=== PATIENT | male | born 1970 | race Caucasian/White ===

== ENCOUNTER 2016-06-06 04:43 | Emergency (ER) | payer OTHER ==
[~2016-06-06] VITALS: Ht 167.6 cm; Wt 80.7 kg
[2016-06-06 04:57] VITALS: BP 129/86
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
[2016-06-06] MEDS ORDERED: ANUSOL-HC25 M1 RC (06:21)
[2016-06-06] MEDS ORDERED: DICLOFENAC SODI75 M2 PO (06:21)
--- NOTE | 2016-06-06 07:17 | RADIOLOGY REPORT ---
EXAMINATION: XR FEMUR and knee, LEFT CLINICAL INFORMATION: Hardware failure left hip and knee pain COMPARISON: None TECHNIQUE: AP and lateral views of the left femur were obtained. 3 views of the left knee are obtained FINDINGS: There is an intramedullary adolfo transfixing an old healed femoral shaft fracture. The distal end of the adolfo is transfixed by 2 screws. The cephalad and of the adolfo extends above the greater trochanter and is not fully included on the AP projection. There is some heterotopic bone surrounding the cephalad end of the adolfo. There is anatomic position and alignment of fracture fragments with solid bony union at the fracture site. There is no evidence for hardware loosening or failure on the views provided. There is no dislocation at the hip or knee. There is no fracture or dislocation seen in the left knee. 2 pins and a circular wire transfix the patella. There is a break in the circular wire. The pins are intact. There is likely an old healed fracture of the patella. There is anatomic position of the bony structures and a fracture line is not seen at this time. There is a possible very tiny suprapatellar joint effusion. There is some chondrocalcinosis in the medial compartment of the knee joint. IMPRESSION: Old healed fractures of the distal shaft of the left femur and patella with hardware as described. The femoral shaft hardware is intact. The circular wire transfixing the patella is broken. Patellar pins are intact. Anatomic position and alignment of bony structures. No acute fracture or dislocation. Heterotopic bone surrounds the cephalad portion of the intramedullary femoral adolfo not fully included on this study.
== END 2016-06-06 07:38 ==
LOC: ERH 04:43
DX: M25.552 Pain in left hip (principal); K64.9 Unspecified hemorrhoids
CPT/HCPCS: 73552; 73562-LT

== ENCOUNTER 2016-06-08 10:29 | Emergency (ER) | payer OTHER ==
[~2016-06-08] VITALS: Ht 167.6 cm; Wt 80.7 kg
[~2016-06-08 10:29] MED LIST: ANUSOL-HC25 M1 RC; DICLOFENAC SODI75 M2 PO
[2016-06-08 10:43] VITALS: BP 112/74
[2016-06-08] MEDS ORDERED: PERCOCET 5-3251 EACH PO (11:37)
[2016-06-08] MEDS ORDERED: XANAX0.5 M1 PO (11:37)
[2016-06-08] MEDS ORDERED: ASPIRIN81 M4 PO (11:39)
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
== END 2016-06-08 11:51 ==
LOC: ERH 10:29
DX: T84.84XA Pain due to internal orthopedic prosthetic devices, implants and grafts, initial encounter (principal)

== ENCOUNTER 2016-07-30 14:16 | Emergency (ER) | payer OTHER ==
[~2016-07-30] VITALS: Ht 167.6 cm; Wt 81.6 kg
[~2016-07-30 14:16] MED LIST changes: +ASPIRIN81 M4 PO; +PERCOCET 5-3251 EACH PO; +XANAX0.5 M1 PO
[2016-07-30 14:24] VITALS: BP 166/97
--- NOTE | 2016-07-30 15:44 | ED GENERAL ADULT ---
History of Present Illness General Chief Complaint: General Adult Stated Complaint: NEEDS PAIN MEDS Source: patient Exam Limitations: no limitations Vital Signs & Intake/Output Vital Signs & Intake/Output Vital Signs Date Time Temp Pulse Resp B/P B/P Pulse O2 O2 Flow FiO2 Mean Ox Delivery Rate 07/30 1424 97.1 74 18 166/97 99 Room Air Allergies Coded Allergies: paroxetine (From PAXIL) (Severe, HYPERACTIVITY 06/08/16) sertraline (From ZOLOFT) (Severe, HYPERACTIVITY 06/08/16) NSAIDS (Non-Steroidal Anti-Inflamma (UNKNOWN 06/08/16) Uncoded Allergies: HIGH CHOLESTEROL MEDS (Severe, MUSCLE ACHES/PAINS 11/22/11) CT DYE (Intermediate, FACE SWELLING 11/20/11) Reconcile Medications Alprazolam (Xanax) 0.5 MG TABLET 1 TAB PO BIDP PRN anxiety Aspirin (Aspirin*) 81 MG TAB.CHEW 1 TAB PO DAILY HEART HEALTH (Reported) Oxycodone HCl/Acetaminophen (Percocet 5-325 MG Tablet) 5 MG-325 MG TABLET 1 TAB PO TID PRN pain Triage Note: PT REQUESTING REFILL OF PERCOCET 10MG, HIS PMD IS AWAY AND COVERING DR DOES NOT FEEL COMFORTABLE PRESCRIBING TO HIM. Triage Nurses Notes Reviewed? yes HPI: This patient is a 46-year-old male who presented to the emergency department today for requesting refill on Xanax and Percocet. This patient reported that he recently saw an orthopedic surgeon to help him with hardware malfunction in his left hip. He reported that his eye memory care physician is currently on vacation in the covering physician would not refill his Percocet and Xanax prescription today. The patient reported that he isn't 10 out of 10 pain which is sharp and nonradiating. It is interfering with his sleep and worse with movement. The patient reported that he is not allowed to take NSAIDs due to a heart condition and stents. He denied any chest pain, difficulty breathing, fevers, chills, or abdominal pain. (RAJESH BLANTON,DAYLIN) Past History Travel History Traveled to [place] past 21 day No Medical History Any Pertinent Medical History? see below for history Neurological: NONE EENT: NONE Cardiovascular: hypertension, myocardial infarction Respiratory: NONE Gastrointestinal: NONE Hepatic: NONE Renal: NONE Musculoskeletal: NONE Psychiatric: NONE Endocrine: NONE Blood Disorders: NONE PETROLEUM ENGINEERING PROFESSOR/Reproductive: NONE Surgical History Surgical History: SEE hpi Psychosocial History What is your primary language Mexican Tobacco Use: Never used ETOH Use: denies use Illicit Drug Use: denies illicit drug use Family History Hx Contributory? No (DAYLIN MENA PA-C) Review of Systems Review of Systems Constitutional: Reports: no symptoms. EENTM: Reports: no symptoms. Respiratory: Reports: no symptoms. Cardiovascular: Reports: no symptoms. GI: Reports: no symptoms. Genitourinary: Reports: no symptoms. Musculoskeletal: Reports: see HPI. Skin: Reports: no symptoms. Neurological/Psychological: Reports: no symptoms. All Other Systems: Reviewed and Negative (DAYLIN MENA PA-C) Physical Exam Physical Exam General Appearance: well developed/nourished, no apparent distress, alert, awake Comments: Well-developed well-nourished person in no acute distress HEENT: Normal EENT exam, head normocephalic, moist mucous membranes Pupils equally round and reactive to light. Neck: Supple, no lymphadenopathy Back: Antalgic gait Respiratory: No respiratory distress. Speaking in full sentences Extremity: Normal equal pulses Neuro: Alert oriented x3, cranial nerves II through XII grossly intact. Skin: No appreciable rash on exposed skin, skin is warm and dry. Psych: Mood and affect is normal Core Measures ACS in differential dx? No CVA/TIA Diagnosis: No Severe Sepsis Present: No Septic Shock Present: No (DAYLIN MENA PA-C) Progress Differential Diagnoses I considered the following diagnoses in my evaluation of the patient: [ Medication refill, medication seeking, chronic pain, hardware function] Plan of Care: Current Medications Sig/Alexandra Start time Last Medication Dose Stop Time Status Admin Alprazolam 0.5 MG ONCE ONE 07/30 1545 AC (Xanax) 07/30 1546 Oxycodone/ 3 TAB ONCE ONE 07/30 1545 UNVr Acetaminophen 07/30 1546 (Percocet) Initial ED EKG: none (DAYLIN MENA PA-C) Departure Departure Disposition: HOME OR SELF CARE Condition: Stable Clinical Impression Primary Impression: Hip pain Qualifiers: Laterality: left Qualified Code: M25.552 - Pain in left hip Referrals: STEFAN WINN MD (PCP/Family) Additional Instructions: Return to the emergency department for any worsening symptoms or concerns. Departure Forms: Customer Survey General Discharge Information (DAYLIN MENA PA-C) PA/ACTUARIAL ASSOCIATE Co-Sign Statement Statement: ED Attending supervision documentation- [] I saw and evaluated the patient. I have also reviewed all the pertinent lab results and diagnostic results. I agree with the findings and the plan of care as documented in the PA's/ACTUARIAL ASSOCIATE's documentation. [X] I have reviewed the ED Record and agree with the PA's/ACTUARIAL ASSOCIATE's documentation. [] Additions or exceptions (if any) to the PAs/ACTUARIAL ASSOCIATE's note and plan are summarized below: [] (RHETT SYKES,TERRA) Critical Care Note Critical Care Note Critical Care Time: non-applicable (DAYLIN MENA PA-C)
== END 2016-07-30 15:50 ==
LOC: ERH 14:16
DX: M25.552 Pain in left hip (principal)